=== PATIENT | female | born 1990 | race Asian ===

== ENCOUNTER → 2021-09-15 15:57 | Outpatient (CLI) | payer OTHER, SELFPAY ==
--- NOTE | ~2021-09-15 | US_ITS ---
EXAMINATION: US thyroid DATE: 09/15/2021 16:19 INDICATION: Hypothyroidism. TECHNIQUE: Multiple ultrasound images of the thyroid were obtained. COMPARISON: None. FINDINGS: The right thyroid lobe measures 5.6 x 1.8 x 1.7 cm. The left thyroid lobe measures 5.7 x 1.5 x 1.6 c m. In the left thyroid lobe, there is an 8 mm solid, hypoechoic, wider than tall nodule with smooth margin without echogenic foci (TI-RADS TR4). In the right thyroid lobe, there is a 9 mm solid, isoech oic, wider than tall nodule with ill-defined margin without echogenic foci (TR3). IMPRESSION: 1. Small thyroid nodules, likely not clinically significant. No follow-up is needed. Reviewed, dictated and finalized at location A. IMPRESSION: 1. Small thyroid nodules, likely not clinically significant. No follow-up is ne eded.
== END ==
PROVIDERS: PCP Emergency Medicine; Visit Provider Emergency Medicine
DX: E03.9 Hypothyroidism, unspecified (principal); E04.2 Nontoxic multinodular goiter
CPT/HCPCS: 76536

== ENCOUNTER → 2022-01-19 10:02 | Outpatient (CLI) | payer OTHER, SELFPAY ==
--- NOTE | ~2022-01-19 | US_ITS ---
Pelvic ultrasound. Clinical History: First trimester , supervision of normal . Technique: Realtime transabdominal and transvaginal scanning of the pelvis was performed. Findings: Intrauterine gestation is present. [place]-rump length of 1.2 cm corresponds to an estimated gestational age of 7 weeks 3 days. Yolk sac also present. heart rate is 155 bpm. Small subchori onic hemorrhage noted. The right ovary measures 2.1 x 3.2 x 1.9 cm. No significant right ovarian or adnexal mass is seen. The left ovary measures 2.1 x 1.3 x 2.3 cm. No significant left ovarian or adnexal mass is seen. There is no evidence of free fluid in the cul de sac. Impression: Live intrauterine gestation with a gestational age of 7 weeks 3 days. heart rate is 155 bpm. Small subchorionic hemorrhage. Reviewed, dictated and finalized at location [] IDER RELATIONS CONSULTANT Impression: Live intrauterine gestation with a gestational age of 7 weeks 3 days. hea rt rate is 155 bpm. Small subchorionic hemorrhage.
== END ==
PROVIDERS: PCP Advanced Practice Midwife; Visit Provider Advanced Practice Midwife
DX: O46.91 Antepartum hemorrhage, unspecified, first trimester (principal); Z3A.01 Less than 8 weeks gestation of pregnancy
CPT/HCPCS: 76801; 76817

== ENCOUNTER → 2022-03-01 14:50 | Outpatient (CLI) | payer OTHER, SELFPAY ==
--- NOTE | ~2022-03-01 | US_ITS ---
EXAMINATION: US OB limited DATE: 03/01/2022 15:20 INDICATION: Subchorionic hematoma. TECHNIQUE: Real-time ultrasound of the pelvis was performed. COMPARISON: Ultrasound 01/19/2022 FINDINGS: There is a single fetus in variable presentation. The placenta is fundal. heart rate is 157 be ats per minute (bpm). There is a 2.7 cm hypoechoic mass in the uterine fundus, likely a subserosal fi broid. The amniotic fluid volume is subjectively normal. IMPRESSION: 1. Single living fetus in variable presentation. 2. No subchorionic hematoma. 3. Uterine fibroid. Reviewed, dictated and finalized at location A. L BONDING HELPER
== END ==
PROVIDERS: PCP Advanced Practice Midwife; Visit Provider Advanced Practice Midwife
DX: O36.8910 Maternal care for other specified fetal problems, first trimester, not applicable or unspecified (principal); O34.11 Maternal care for benign tumor of corpus uteri, first trimester; Z3A.00 Weeks of gestation of pregnancy not specified
CPT/HCPCS: 76815

== ENCOUNTER → 2022-04-14 14:17 | Outpatient (CLI) | payer OTHER, SELFPAY ==
--- NOTE | ~2022-04-14 | US_ITS ---
EXAMINATION: US OB /maternal detail DATE: 04/14/2022 15:19 INDICATION: anatomic survey. TECHNIQUE: Real-time pelvic ultrasound was performed. COMPARISON: Ultrasound 03/01/2022, 01/19/2022 FINDINGS: There is a single living fetus in vertex presentation. The placenta is anterior, 6.3 cm in the cervi x. The cervical length is 5.0 cm on transabdominal images, which is normal. heart rate is 145 b eats per minute (bpm). The following biometric data were obtained: Biparietal diameter (BPD): 4.8 cm; head circumference (HC): 17.5 cm; abdominal circumference (AC): 14 .5 cm; femur length (FL): 3.1 cm. These measurements are concordant. Estimated weight is 311 g +/- 47 g, which correlates with the 66th percentile when 09/05/22 is u sed as estimated date of delivery. As single measurements, these parameters are each equal to the following estimated gestational ages: BPD: 20 weeks 4 days. HC: 20 weeks 0 days. AC: 19 weeks 6 days. FL: 19 weeks 4 days. estimated gestational age based solely on measurements from this exam is 20 weeks 0 days +/- 1 weeks 3 days. The cerebral ventricles, cerebellum, cisterna magna, nuchal fold, lip, and visualized portions of the spine are normal. The heart is normal. The diaphragm, stomach, kidneys, and bladder are normal. Ther e are two umbilical arteries to yield a 3-vessel cord. The cord insertion is normal. IMPRESSION: 1. Single living fetus in vertex presentation. 2. Estimated weight is 311 g +/- 47 g, which correlates with the 66th percentile when 09/05/22 is used as estimated date of delivery. This date was set by ultrasound on 01/19/2022. 3. Normal anatomic survey. Reviewed, dictated and finalized at location A. ENTARY SPECIAL EDUCATION TEACHER IMPRESSION: 1. Single living fetus in vertex presentation. 2. Estimated weight is 311 g +/- 47 g, which correlates with the 66th pe rcentile when 09/05/22 is used as estimated date of delivery. This date was set by ultrasound on 01/19/2022. 3. Normal anatomic survey.
== END ==
PROVIDERS: PCP Advanced Practice Midwife; Visit Provider Advanced Practice Midwife
DX: Z36.9 Encounter for antenatal screening, unspecified (principal); Z3A.20 20 weeks gestation of pregnancy
CPT/HCPCS: 76805

== ENCOUNTER 2022-06-09 10:47 | Observation (INO) | payer OTHER, SELFPAY ==
[2022-06-09 10:47] VITALS: BMI 25.7
[2022-06-09 11:31] LABS: Appearance Urine Turbid (Clear); Bacteria Urine None Seen /hpf; Bilirubin Urine Negative (Negative); Blood Urine Negative (Negative); Color Urine Yellow (Yellow); Glucose Urine UA Negative (Negative); Ketones Urine 2+ mg/dL (Negative); Leukocyte Esterase Ur 1+ LEU/UL (NEGATIVE); Nitrate Urine Negative (Negative); Protein Urine 1+ mg/dL (Negative); RBC Urine 0-2 /hpf (0-2); Specific Grav Ur 1.018 (1.001-1.035); Squamous Epithelial Cell Urine Few /hpf (Few); pH Urine 6.5 (5.0-9.0)
[2022-06-09 12:11] LABS: Add Urine Microscopic? YES
[2022-06-09] MEDS: SIMETHICONE 80 MG TAB.CHEW PO (12:43)
[2022-06-09] MEDS: DEXTROSE 5%/LACTATED RINGERS 1,000 ML 100 ML IV CONT (12:43)
[2022-06-09 12:49] LABS: Basophils Percent Auto 0.3 % (0.2-1.2); Eosinophils Absolute Auto 0.1 K/mm3 (0-0.3); Eosinophils Percent Auto 0.6 % (0-4.4); Hematocrit 35.9 % (37.0-47.0); Hemoglobin 11.6 g/dL (12.0-15.0); Immature Granulocyte Absolute 0.11 K/mm3 (0.00-0.031); Immature Granulocyte Percent A 0.9 % (0-0.5); Lymphocytes Absolute Auto 1.82 K/mm3 (0.9-3.2); Lymphocytes Percent Auto 14.8 % (18.3-44.2); Mean Corpuscular HGB Conc 32.3 g/dl (32-36); Mean Corpuscular Hemoglobin 29.7 pg (26-34); Mean Corpuscular Volume 91.8 fl (80-100); Monocytes Absolute Auto 0.7 K/mm3 (0.1-0.6); Monocytes Percent Auto 5.5 % (2.6-8.5); Neutrophils Absolute Auto 9.6 K/mm3 (1.3-6.7); Neutrophils Percent Auto 77.9 % (45.5-73.1); Platelet Count Result 347 k/mm3 (150-375); Red Blood Count 3.91 M/mm3 (4.2-5.4); Red Cell Distribution Width 13.2 % (11.5-14.5); White Blood Count 12.3 K/mm3 (4.5-10.0)
[2022-06-09 13:00] LABS: Alanine Aminotransferase 34 U/L (6-35); Albumin Level 3.3 g/dL (3.5-5.1); Alkaline Phosphatase 107 U/L (38-126); Anion Gap 3 mmol/L (8-16); Aspartate Amino Transferase 31 U/L (14-36); Bilirubin,Total 0.4 mg/dL (0.2-1.3); Blood Urea Nitrogen 4 mg/dL (7-17); Calcium 8.5 mg/dL (8.4-10.2); Carbon Dioxide 28 mmol/L (22-30); Chloride 100 mmol/L (98-107); Estimated CRCL calculation 119 ml/min; Estimated Glomerular Filt Rate > 60; Glucose 75 mg/dL (65-110); Potassium 3.7 mmol/L (3.4-5.0); Sodium 131 mmol/L (137-145); Uric Acid 4.5 mg/dL (2.5-7.5)
--- NOTE | 2022-06-21 09:30 | PM.OBTRLD ---
OB - Triage/Final Diagnosis Visit Information Reason for evaluation: other ( nausea with shortness of breath) Comments/Additional reasons for admission: I have assessed the risk for this patient, Wilian Carrillo, and determined that she would benefit from observation care. Evaluation Laboratory results: Laboratory Tests 06/09/22 06/09/22 11:19 12:33 WBC 12.3 H RBC 3.91 L Hgb 11.6 L Hct 35.9 L MCV 91.8 MCH 29.7 MCHC 32.3 RDW 13.2 Plt Count 347 MPV 9.0 Immature Gran % (Auto) 0.9 H Neut % (Auto) 77.9 H Lymph % (Auto) 14.8 L [place] % (Auto) 5.5 Eos % (Auto) 0.6 Baso % (Auto) 0.3 Lymph # (Auto) 1.82 [place] # (Auto) 0.7 H Eos # (Auto) 0.1 Baso # (Auto) 0.0 Abs Immat Gran (auto) 0.11 H Absolute Neuts (auto) 9.6 H Absolute Nucleated RBC 0.0 Nucleated RBC % 0.0 Sodium 131 L Potassium 3.7 Chloride 100 Carbon Dioxide 28 Anion Gap 3 L BUN 4 L Creatinine 0.50 L Estim Creat Clear Calc 119 Estimated GFR > 60 Glucose 75 Uric Acid 4.5 Calcium 8.5 Total Bilirubin 0.4 AST 31 ALT 34 Alkaline Phosphatase 107 Total Protein 6.0 L Albumin 3.3 L Urine Color Yellow Urine Appearance Turbid H Urine pH 6.5 Ur Specific [place] 1.018 Urine Protein 1+ H Urine Glucose (UA) Negative Urine Ketones 2+ H Ur Blood (Man) Negative Urine Nitrate Negative Urine Bilirubin Negative Urine Urobilinogen 1.0 Ur Leukocyte Esterase 1+ H Urine RBC 0-2 Urine WBC 6-10 Ur Squamous Epith Cells Few Urine Bacteria None seen Urine Casts 3-5
== END 2022-06-09 14:57 | disposition home or self-care (01) ==
PROVIDERS: Admitting Provider Obstetrics & Gynecology Gynecology; PCP Advanced Practice Midwife; Visit Provider Obstetrics & Gynecology Gynecology
DX: O21.9 Vomiting of pregnancy, unspecified (principal); O26.892 Other specified pregnancy related conditions, second trimester; R06.02 Shortness of breath; O36.8120 Decreased fetal movements, second trimester, not applicable or unspecified; Z3A.27 27 weeks gestation of pregnancy
CPT/HCPCS: 36415; 80053; 81001; 84550; 85025; 87086; 87088; A9270; G0378; G0379; J7121

== ENCOUNTER 2022-06-11 12:23 | Observation (INO) | payer OTHER, SELFPAY ==
[2022-06-11] VITALS (51 sets, daily range): BP systolic 129–151; BP diastolic 84–105; PULSE 103–136; RESP 16–17; TEMP 36.6–36.9; O2SAT 93–99; BMI 25.4
--- NOTE | ~2022-06-11 | XR_ITS ---
EXAM: XR abdomen/kub 1V DATE: 06/11/2022 16:47 HISTORY: abd distention PATIENT 27.5 WEEKS . COMPARISON: None available. FINDINGS: Gravid uterus. No large or small bowel dilation. Suggestion of centralization of bowel loo ps, even given the displacement by the fetus. No organomegaly. No abnormal abdominal calcification. R egional bones and soft tissues normal for age. Flank stripes are preserved. IMPRESSION: Possible abdominal ascites, consider further evaluation with abdominal ultrasound. Reviewed, dictated and finalized at location K. IMPRESSION: Possible abdominal ascites, consider further evaluation with abdomi nal ultrasound.
--- NOTE | ~2022-06-11 | XR_ITS ---
EXAMINATION: XR chest 2V Exam Date/Time: 06/11/2022 22:34 CDT HISTORY: TACHYCARDIA SOB Comparison: None available. RESULT: Lines, tubes, and devices: None. Lungs and pleura: Subsegmental airspace disease in the left base. Left arthritic angle blunting. Cardiomediastinal silhouette: Normal. Other: No acute osseous or upper abdominal finding. IMPRESSION: Subsegmental left basilar atelectasis/consolidation. Small left pleural effusion. Reviewed, dictated and finalized at location K. IMPRESSION: Subsegmental left basilar atelectasis/consolidation. Small left pleural effusio n.
--- NOTE | ~2022-06-11 | US_ITS ---
EXAMINATION: US abdomen complete DATE: 06/11/2022 20:19 INDICATION: abd distendion and pain. TECHNIQUE: Multiple grayscale and Doppler ultrasound images of the abdomen were obtained. COMPARISON: None available. FINDINGS: Pancreas is not well visualized. The liver is normal with normal echogenicity and echotextu re. No surface nodularity. Normal hepatopetal flow in the main portal vein. The gallbladder is normal size, with no abnormal wall thickening, pericholecystic fluid or stones. Biliary sludge is present. The common bile duct measures 3 mm. There was no sonographic Najera sign. The visualized portions of the aorta and inferior vena cava are normal. The right kidney measures 10.8 x 4.6 x 5.3 cm. The left kidney measures 12.3 x 4.8 x 4.6 cm. The kidn eys demonstrate normal parenchymal echogenicity. There is no hydronephrosis. The spleen is normal in appearance and measures 13 cm. Incidental note of bilaterally enlarged ovaries, with vascular flow. IMPRESSION: Moderate ascites. Mild splenomegaly. Reviewed, dictated and finalized at location K.
--- NOTE | 2022-06-11 12:45 | PC.NURSE ---
Patient presents to labor with gas pain and pressure and tightness. Patient was seen for this a few days ago for this and given meds. Patient states that she only had a very small stool after that and the pain is increasing and the pressure is getting worse.
--- NOTE | 2022-06-11 13:12 | PC.NURSE ---
Dr Islas paged.
--- NOTE | 2022-06-11 13:25 | PC.NURSE ---
No answer received from Dr Islas. [facility] Trinidad paged.
[2022-06-11] MEDS: polyethylene glycoL 3350 17 GM POWD.PACK PO ×2 (14:00→20:33)
--- NOTE | 2022-06-11 14:00 | PC.NURSE ---
Pt states she has abdominal pain constipation past 2 weeks. States she has had no appetite since onset of symptoms. Pt states she has had small bowel movement but no normal bowel movement for 2 weeks. Has has intermittent vomiting and no appetite. States she is not sleeping well due to pain. Abdomen appears distended. Bowels sounds are present in all four quadrant. Pt is not having vomiting currently.
[2022-06-11] MEDS: DOCUSATE SODIUM 400 MG/400 ML ENEMA RECTAL (14:26)
--- NOTE | 2022-06-11 14:35 | PC.NURSE ---
Pt in side lying position. 350 cc of colace/castile soap enema instilled rectally. Commode to bedside. Pt instructed to remain on side as long as tolerated and call when having bowel movement.
--- NOTE | 2022-06-11 14:50 | PC.NURSE ---
Pt sitting on bedside commode. States she is feeling she is having results from enema. States she is more comfortable also.
--- NOTE | 2022-06-11 15:15 | PC.NURSE ---
States that she passed very little stool when she got up to bathroom. States that pressure is a little better, abd still feel tight to palpation.
--- NOTE | 2022-06-11 15:51 | PC.NURSE ---
Patient states that she is starting to feel more pressure and tightness and that the gas is coming back.
--- NOTE | 2022-06-11 16:10 | PC.NURSE ---
Upon further questioning of the patient she states that she has not had a normal BM in at least a week. Abd is tight to palpate, mild tenderness noted on palpation. Bowel sounds noted to be hypoactive after several minutes of listening. Patient has had no appetite and has been nauseated and had some vomiting. Patient states that she freq vomits large amount of air. Patient is restless and some shortness or breath and shallow tachypneic breathing is noted, especially with movement.
--- NOTE | 2022-06-11 16:13 | PC.NURSE ---
Dr Swanson notified of symptoms and no relief after enema, orders received.
[2022-06-11 16:37] LABS: Hematocrit 36.9 % (37.0-47.0); Hemoglobin 12.4 g/dL (12.0-15.0); Mean Corpuscular HGB Conc 33.6 g/dl (32-36); Mean Corpuscular Hemoglobin 30.2 pg (26-34); Mean Platelet Volume 8.1 fl (7.4-10.4); Platelet Count Result 362 k/mm3 (150-375); Red Cell Distribution Width 13.2 % (11.5-14.5); White Blood Count 11.9 K/mm3 (4.5-10.0)
[2022-06-11 16:49] LABS: Alanine Aminotransferase 36 U/L (6-35); Albumin Level 3.3 g/dL (3.5-5.1); Alkaline Phosphatase 119 U/L (38-126); Anion Gap 9 mmol/L (8-16); Aspartate Amino Transferase 35 U/L (14-36); Bilirubin,Total 0.4 mg/dL (0.2-1.3); Blood Urea Nitrogen 4 mg/dL (7-17); Calcium 8.2 mg/dL (8.4-10.2); Carbon Dioxide 23 mmol/L (22-30); Chloride 99 mmol/L (98-107); Estimated CRCL calculation 119 ml/min; Estimated Glomerular Filt Rate > 60; Glucose 89 mg/dL (65-110); Potassium 3.5 mmol/L (3.4-5.0); Sodium 131 mmol/L (137-145)
--- NOTE | 2022-06-11 17:22 | PC.NURSE ---
Dr Swanson here to see patient.
[2022-06-11] MEDS: BISACODYL 10 MG SUPPOSITORY RECTAL ×2 (18:45→20:09)
--- NOTE | 2022-06-11 18:45 | PC.NURSE ---
Patient arrived back from ultrasound department. VSS. Patient states pain is unchanged since going to ultrasound. Plan of care reviewed with patient. Dulcolax medication education provided and risks/benefits explained. Patient states understanding of Dulcolax education and agrees to plan of care. Patient questions answered. Patient assisted into left lateral position and Dulcolax medication administered.
--- NOTE | 2022-06-11 19:28 | PC.NURSE ---
Patient assisted to restroom, patient states she feels the urge to have a bowel movement. Pull cord explained to patient and patient instructed to call for RN if any additional assistance was needed while in the restroom.
--- NOTE | 2022-06-11 19:31 | PC.NURSE ---
Dr. Swanson called for an update. Notified her that patient was up to restroom currently and Abdominal Ultrasound results pending. Order received for D5LR 125ml/hr. Dopple T qshift.
--- NOTE | 2022-06-11 20:02 | PC.NURSE ---
Updated Dr. Swanson that patient was able to have small bowel movement, patient states it was not a regular bowel movement for her and was small. Patient reports some relief following bowel movement, but still reports feeling distended/bloated. Order to administered repeat dose Dulcolax suppository and administer repeat dose of miralax.
[2022-06-11] MEDS: DEXTROSE 5%/LACTATED RINGERS 1,000 ML 125 ML IV CONT (20:09)
--- NOTE | 2022-06-11 20:09 | PC.NURSE ---
Plan of care was reviewed with patient. Patient states understanding of plan of care and repeated doses of Dulcolax and Miralax. Patient denies questions and agrees to plan of care.
--- NOTE | 2022-06-11 20:37 | PM.IMHP ---
H&P: HPI History of Present Illness Date/Time: 06/11/22 20:37 Chief Complaint: Abdominal pain Narrative: She is at 27 weeks with a history of constipation. She presented [facility] with complaints of tight upper abdominal tenderness diffusely and constipation. She has few small bowel movements for several weeks, no regular BM, and more constipation and tightness over the past few days. She has been to [facility] for this previously and had IV hydration. She denies fever, no emesis but nausea. She gets winded,SOB sometimes when she eats. She has been taking Miralax and Colace. She was given an enema with no relief. She denies contractions. no vaginal bleeding. She has been having increase pain in her right mid back. No severe headache or scotomata. Review of Systems Constitutional: Constitutional: Reports as per HPI Cardiovascular: Cardiovascular: Reports no additional cardiovascular complaints Respiratory: Respiratory: Reports dyspnea on exertion Genitourinary: Genitourinary: Reports no additional female genitourinary complaints Musculoskeletal: Musculoskeletal: Reports back pain Neurologic: Reports system reviewed and no additional complaints, except as documented Psychiatric: Psychiatric: Reports no additional psychiatric complaints Endocrine: Endocrine: Reports no additional endocrine complaints Hematologic/Lymphatic: Hematologic/Lymphatic: Reports no additional hematologic/lymphatic complaints Allergic/Immunologic: Allergic/Immunologic: Reports no additional allergic/immunologic complaints Meds Home Medications and Allergies Home Medications Medication Instructions Recorded Confirmed Type cholecalciferol (vitamin D3) 125 125 mcg PO DAILY 06/09/22 History mcg (5,000 unit) tablet (Vitamin D3) diphenhydramine HCl 50 mg/30 mL 50 mg PO HS PRN nausea 06/09/22 History oral liquid vit no.95-ferrous 1 tablet PO DAILY 06/09/22 History fumarate 28 mg-folic acid 800 mcg tablet () pyridoxine (vitamin B6) 100 mg 100 mg PO DAILY 06/09/22 History tablet Allergies Allergy/AdvReac Type Severity Reaction Status Date / Time No Known Allergies Allergy Verified 06/09/22 12:36 Vital Signs Vital Signs - 24 hr 06/11/22 13:49 06/11/22 14:00 06/11/22 14:09 Temperature Pulse Rate 119 H 111 H 103 H Respiratory Rate Blood Pressure 137/99 H 151/88 H 134/84 Pulse Oximetry Oxygen Delivery 06/11/22 17:14 06/11/22 17:19 06/11/22 17:21 Temperature Pulse Rate 114 H Respiratory Rate Blood Pressure 144/85 H Pulse Oximetry 95 97 Oxygen Delivery 06/11/22 17:24 06/11/22 17:29 06/11/22 17:30 Temperature Pulse Rate 107 H Respiratory Rate Blood Pressure 139/87 Pulse Oximetry 98 96 Oxygen Delivery 06/11/22 17:34 06/11/22 17:39 06/11/22 17:44 Temperature Pulse Rate Respiratory Rate Blood Pressure Pulse Oximetry 99 97 98 Oxygen Delivery 06/11/22 17:46 06/11/22 18:46 06/11/22 14:09 Temperature 98.1 F Pulse Rate 125 H 116 H Respiratory Rate 16 Blood Pressure 129/93 H 143/93 H Pulse Oximetry Oxygen Delivery Room Air 06/11/22 17:30 06/11/22 18:45 Temperature 98.4 F Pulse Rate Respiratory Rate Blood Pressure Pulse Oximetry Oxygen Delivery Room Air Exam Const: General: alert and awake Eyes: General: appearance normal, both eyes and all related structures Resp: Effort & Inspection: able to speak in complete sentences Auscultation: clear to auscultation bilaterally Cardio: Rate: regular rate Rhythm: regular rhythm GI: Other: gravid, no rebound, no guarding, no no fundal tenderness, distended, good bowel sounds throughout no CVA tenderness, mild tenderness upper abdomen diffusely Back/Spine/Pelvis: Back: no CVA tenderness Skin: General skin exam: normal color Neuro: General: oriented to person, oriented to place and oriented to time H&P: Results
--- NOTE | 2022-06-11 21:12 | PC.NURSE ---
Notified Dr. Swanson of ultrasound report. Updated on maternal assessment and vital signs. Patient rates pain 3-4 out of 10 at rest, 6 out of 10 with movement. Orders received.
--- NOTE | 2022-06-11 21:25 | PC.NURSE ---
24 hour urine collection testing reviewed with patient, patient states understanding. 24 hour urine collection started.
[2022-06-11 22:03] LABS: Appearance Urine Cloudy (Clear); Bacteria Urine Rare /hpf; Bilirubin Urine Negative (Negative); Blood Urine Negative (Negative); Calcium Oxalate Crystals Urine Present /hpf; Color Urine Yellow (Yellow); Glucose Urine UA Negative (Negative); Ketones Urine 3+ mg/dL (Negative); Leukocyte Esterase Ur 1+ LEU/UL (Negative); Nitrate Urine Negative (Negative); Protein Urine 1+ mg/dL (Negative); RBC Urine 21-50 /hpf (0-2); Specific Grav Ur 1.021 (1.001-1.035); Squamous Epithelial Cell Urine Moderate /hpf (Few); WBC Urine 21-50 /hpf; pH Urine 6.5 (5.0-9.0)
[2022-06-11 22:04] LABS: Uric Acid 5.8 mg/dL (2.5-7.5)
[2022-06-11 22:05] LABS: Creatinine Urine 160.8 mg/dL; Total Protein Urine Random 55 mg/dL; Ur Ttl Prot Creatinine Ratio 0.34 mg/mg (0-0.20)
[2022-06-11 22:06] LABS: Add Urine Microscopic? YES
--- NOTE | 2022-06-11 22:46 | PC.NURSE ---
Patient returned from x-ray. Patient assisted to bed.
--- NOTE | 2022-06-11 22:52 | PC.NURSE ---
Dr. Swanson in unit and updated on maternal and assessment. Vital signs reviewed.
--- NOTE | 2022-06-11 22:57 | ECG_ITS ---
Measurements Intervals [place] Rate: 112 P: 39 LA: 116 QRS: 74 QRSD: 70 T: 14 QT: 316 QTc: 432 Interpretive Statements SINUS TACHYCARDIA WITH SHORT LA INTERVAL NONSPECIFIC T-WAVE ABNORMALITY- ANTERIOR LEADS BASELINE ARTIFACT- I, II, III, AVR, AVL, AVF, V6 ABNORMAL ECG NO PREVIOUS ECG AVAILABLE FOR COMPARISON Electronically Signed On 06-12-2022 8:45:15 CDT by Jose Arce D.O.
[2022-06-11 23:00] LABS: Hepatitis B Surface Antigen Negative (Negative)
[2022-06-11 23:06] LABS: HAV RESULT Negative (Negative); Hepatitis B Core IgM Result Negative (Negative)
[2022-06-11 23:17] LABS: Hepatitis C Virus Antibody Negative (Negative)
--- NOTE | 2022-06-11 23:20 | PC.NURSE ---
Dr. Swanson at bedside. Plan of care discussed with patient and medication education provided. Patient transport to higher level of care facility discussed, risks and benefits explained. Patient agrees to transfer and plan of care.
[2022-06-11] MEDS: FAMOTIDINE 20 MG/2 ML VIAL IV PUSH (23:23)
[2022-06-11 23:29] LABS: Amylase 46 U/L (30-110); Lipase 35 U/L (23-300)
[2022-06-11] MEDS: MAGNESIUM SULF 4 GM/WATER100ML 4 GM/100 ML BAG IVPB (23:42)
[2022-06-11] MEDS: BETAMETHASONE SOD PHOS/ACETATE 30 MG/5 ML VIAL 12 MG IM (23:47)
--- NOTE | 2022-06-11 23:52 | PM.OBPNVD ---
OB - PN: Subj Subjective Date/time seen: 06/11/22 23:52 Interval history: She continues to have increasing mid epigastric pain. She was placed on back on continuous EFM. No contractions. Baseline 145. Reassuring. She was given Pepcid IV. Betamethasone, and Mg started. i discussed with her and the concern for atypical pre-eclampsia as the etiology of her symptoms and recommendations for transfer for further assessment/treatment at [facility]. Risk/benefit of transport discussed. I have discussed her with MFM, Dr. Miguel at [facility], and they agree to transport. Labs reviewed- normal amylase, lipase, CXR- pleural effusion, EKG- sinus tachy, On exam- reflexex 3+, neg clonus. OB - PN: Obj Data Labs 06/11/22 16:28 06/11/22 16:28 Labs: Laboratory Results - last 24 hr 06/11/22 06/11/22 16:28 21:25 WBC 11.9 H RBC 4.10 L Hgb 12.4 Hct 36.9 L MCV 90.0 MCH 30.2 MCHC 33.6 RDW 13.2 Plt Count 362 MPV 8.1 Sodium 131 L Potassium 3.5 Chloride 99 Carbon Dioxide 23 Anion Gap 9 BUN 4 L Creatinine 0.50 L Estim Creat Clear Calc 119 Estimated GFR > 60 Glucose 89 Uric Acid 5.8 Calcium 8.2 L Total Bilirubin 0.4 AST 35 ALT 36 H Alkaline Phosphatase 119 Total Protein 6.0 L Albumin 3.3 L Amylase 46 Lipase 35 Urine Color Yellow Urine Appearance Cloudy H Urine pH 6.5 Ur Specific [place] 1.021 Urine Protein 1+ H Urine Glucose (UA) Negative Urine Ketones 3+ H Ur Blood (Man) Negative Urine Nitrate Negative Urine Bilirubin Negative Urine Urobilinogen 1.0 Leukocyte Esterase Rfl 1+ H Urine RBC 21-50 H Urine WBC 21-50 H Ur Squamous Epith Cells Moderate H Calcium Oxalate Crystal Present Urine Bacteria Rare Urine Casts 3-5 U Random Total Protein 55 Urine Creatinine 160.8 Protein/Creat Ratio 2 0.34 H Hepatitis A IgM Ab Negative Hep Bs Antigen Negative Hep B Core IgM Ab Negative Hepatitis C Ab Screen Negative Imaging Radiologist's impression: Impressions Abdomen X-Ray 06/11/22 16:56 IMPRESSION: Possible abdominal ascites, consider further evaluation with abdominal ultrasound. Abdomen Ultrasound 06/11/22 20:59 IMPRESSION: Moderate ascites. Mild splenomegaly. Chest X-Ray 06/11/22 23:07 IMPRESSION: Subsegmental left basilar atelectasis/consolidation. Small left pleural effusion. OB - PN A/P Time Spent With Patient Time: Total time spent is greater than 50% in coordination of care (as documented) at patient's floor/unit and/or counseling patient:
[2022-06-12] VITALS: BP 131/83; PULSE 113; RESP 17; TEMP 36.4
[2022-06-12 00:04] VITALS: PULSE 120; O2SAT 96
[2022-06-12 00:06] VITALS: BP 142/94; PULSE 117
--- NOTE | 2022-06-12 00:08 | PC.NURSE ---
Transport team at bedside to prepare the patient for transport. Assessment performed prior to transport. Report given at bedside, patient questions answered. FHT reviewed and vital signs reviewed.
[2022-06-12 00:09] VITALS: BP 145/99; PULSE 111; O2SAT 97
[2022-06-12 00:14] VITALS: PULSE 116; O2SAT 97
--- NOTE | 2022-06-12 00:25 | PC.NURSE ---
Patient left OB unit via stretch with [facility] transport team.
--- NOTE | 2022-06-25 08:35 | PM.OBTRLD ---
OB - Triage/Final Diagnosis Visit Information Comments/Additional reasons for admission: I have assessed the risk for this patient, Wilian Carrillo, and determined that she would benefit from observation care. Evaluation Laboratory results: Laboratory Tests 06/11/22 06/11/22 16:28 21:25 WBC 11.9 H RBC 4.10 L Hgb 12.4 Hct 36.9 L MCV 90.0 MCH 30.2 MCHC 33.6 RDW 13.2 Plt Count 362 MPV 8.1 Sodium 131 L Potassium 3.5 Chloride 99 Carbon Dioxide 23 Anion Gap 9 BUN 4 L Creatinine 0.50 L Estim Creat Clear Calc 119 Estimated GFR > 60 Glucose 89 Uric Acid 5.8 Calcium 8.2 L Total Bilirubin 0.4 AST 35 ALT 36 H Alkaline Phosphatase 119 Total Protein 6.0 L Albumin 3.3 L Amylase 46 Lipase 35 Urine Color Yellow Urine Appearance Cloudy H Urine pH 6.5 Ur Specific [place] 1.021 Urine Protein 1+ H Urine Glucose (UA) Negative Urine Ketones 3+ H Ur Blood (Man) Negative Urine Nitrate Negative Urine Bilirubin Negative Urine Urobilinogen 1.0 Leukocyte Esterase Rfl 1+ H Urine RBC 21-50 H Urine WBC 21-50 H Ur Squamous Epith Cells Moderate H Calcium Oxalate Crystal Present Urine Bacteria Rare Urine Casts 3-5 U Random Total Protein 55 Urine Creatinine 160.8 Protein/Creat Ratio 2 0.34 H Hepatitis A IgM Ab Negative Hep Bs Antigen Negative Hep B Core IgM Ab Negative Hepatitis C Ab Screen Negative Final Diagnosis (1) Ascites: Code(s): R18.8 - Other ascites Status: Acute (2) Elevated blood pressure affecting in second trimester, antepartum: Code(s): O16.2 - Unspecified maternal hypertension, second trimester Status: Acute
--- NOTE | 2022-07-05 18:37 | PM.OBTRLD ---
OB - Triage/Final Diagnosis Visit Information Comments/Additional reasons for admission: I have assessed the risk for this patient, Wilian Carrillo, and determined that she would benefit from observation care. Evaluation Laboratory results: Laboratory Tests 06/11/22 06/11/22 16:28 21:25 WBC 11.9 H RBC 4.10 L Hgb 12.4 Hct 36.9 L MCV 90.0 MCH 30.2 MCHC 33.6 RDW 13.2 Plt Count 362 MPV 8.1 Sodium 131 L Potassium 3.5 Chloride 99 Carbon Dioxide 23 Anion Gap 9 BUN 4 L Creatinine 0.50 L Estim Creat Clear Calc 119 Estimated GFR > 60 Glucose 89 Uric Acid 5.8 Calcium 8.2 L Total Bilirubin 0.4 AST 35 ALT 36 H Alkaline Phosphatase 119 Total Protein 6.0 L Albumin 3.3 L Amylase 46 Lipase 35 Urine Color Yellow Urine Appearance Cloudy H Urine pH 6.5 Ur Specific [place] 1.021 Urine Protein 1+ H Urine Glucose (UA) Negative Urine Ketones 3+ H Ur Blood (Man) Negative Urine Nitrate Negative Urine Bilirubin Negative Urine Urobilinogen 1.0 Leukocyte Esterase Rfl 1+ H Urine RBC 21-50 H Urine WBC 21-50 H Ur Squamous Epith Cells Moderate H Calcium Oxalate Crystal Present Urine Bacteria Rare Urine Casts 3-5 U Random Total Protein 55 Urine Creatinine 160.8 Protein/Creat Ratio 2 0.34 H Hepatitis A IgM Ab Negative Hep Bs Antigen Negative Hep B Core IgM Ab Negative Hepatitis C Ab Screen Negative Final Diagnosis (1) Abdominal pain: Code(s): R10.9 - Unspecified abdominal pain Status: Acute (2) Ascites: Code(s): R18.8 - Other ascites Status: Acute (3) Elevated blood pressure affecting in second trimester, antepartum: Code(s): O16.2 - Unspecified maternal hypertension, second trimester Status: Acute
== END 2022-06-12 00:25 | disposition short-term general hospital (02) ==
PROVIDERS: Admitting Provider Advanced Practice Midwife; PCP Advanced Practice Midwife; Visit Provider Obstetrics & Gynecology
DX: O26.892 Other specified pregnancy related conditions, second trimester (principal); R18.8 Other ascites; O99.119 Other diseases of the blood and blood-forming organs and certain disorders involving the immune mechanism complicating pregnancy, unspecified trimester; R16.1 Splenomegaly, not elsewhere classified; O99.512 Diseases of the respiratory system complicating pregnancy, second trimester; J98.11 Atelectasis; J90 Pleural effusion, not elsewhere classified; Z3A.27 27 weeks gestation of pregnancy
CPT/HCPCS: 36415; 71046; 74018; 76700; 80053; 80074; 81001; 82150; 82570; 83690; 84156; 84550; 85027; 87086; 87088; 93005; 96361; 96365; 96372; 96375; A9270; G0378; G0379; J0702; J3475; J7121